=== PATIENT | male | born 2000 | race African-American/Black ===

== ENCOUNTER 2020-10-07 06:09 | Emergency (ER) | payer MEDICAID, OTHER ==
[~2020-10-07] VITALS: Ht 182.9 cm; Wt 84.1 kg
--- NOTE | 2020-10-07 06:41 | NUR ---
[facility] contacted, case # [id number]
[2020-10-07] MEDS ORDERED: LIDOcaine/epinephrine/tetracaine TOPICAL sol 3 ML syringe TOP ONE (06:50)
[2020-10-07] MEDS ORDERED: HYDROcodone/acetaminophen 5mg/325mg tablet PO ONE ×2 (06:50→07:45)
--- NOTE | 2020-10-07 07:00 | NUR ---
No obvious blood in urine;[facility] notified.
--- NOTE | 2020-10-07 07:08 | NUR ---
forehead laceration cleaned w/ NS LET applied.
[2020-10-07 08:56] VITALS: BP 135/69
--- NOTE | 2020-10-07 09:14 | NUR ---
DANI Valenzuel[id number] engaged w/ pt. Family bedside.
--- NOTE | 2020-10-07 10:07 | NUR ---
Various LE officers had been engaged w/ pt. Their work is complete. Pt dc'd
== END 2020-10-07 10:08 | disposition home or self-care (01) ==
LOC: ER 06:09
DX: S01.81XA Laceration without foreign body of other part of head, initial encounter (principal); S62.306A Unspecified fracture of fifth metacarpal bone, right hand, initial encounter for closed fracture; H72.91 Unspecified perforation of tympanic membrane, right ear; H93.231 Hyperacusis, right ear; Y04.0XXA Assault by unarmed brawl or fight, initial encounter; Y93.89 Activity, other specified; Y92.89 Other specified places as the place of occurrence of the external cause; Y99.8 Other external cause status
CPT/HCPCS: 12011; 70450; 70486; 71046; 73130; 99285

== ENCOUNTER 2020-10-14 13:30 | Emergency (ER) | payer OTHER ==
[~2020-10-14] VITALS: Ht 182.9 cm; Wt 84.1 kg
[2020-10-14 13:38] VITALS: BP 137/76
== END 2020-10-14 15:27 | disposition home or self-care (01) ==
LOC: ER 13:31
DX: S01.81XD Laceration without foreign body of other part of head, subsequent encounter (principal); F12.90 Cannabis use, unspecified, uncomplicated; Z48.02 Encounter for removal of sutures; X58.XXXD Exposure to other specified factors, subsequent encounter
CPT/HCPCS: 29125; 99283